=== PATIENT | male | born 1980 | race Caucasian/White ===

== ENCOUNTER 2021-06-03 23:10 | Emergency (ER) | payer OTHER, SELFPAY ==
[2021-06-03 23:29] VITALS: BP 175/99; PULSE 96; RESP 18; TEMP 36.5; O2SAT 99; BMI 22.9
--- NOTE | 2021-06-03 23:59 | HMH.EDGIBL ---
ED Disposition Clinical Impression: Upper gastrointestinal hemorrhage, Alcohol use Disposition: Left Against Medical Advice Condition on Discharge: Fair Instructions: DI for Gastrointestinal Bleeding Additional Instructions: recheck if any problems and stop etoh Referrals: Provider,Referral, [Primary Care Provider] - - Critical Care Critical Care Time: No Attestation: On , the high probability of a clinically significant, sudden or life threatening deterioration of the following system(s) required my full and direct attention, intervention and personal management. The time I documented below is in addition to time spent performing reported procedures but includes the following listed in this critical care notation. Medical Decision Making - Medical Records Medical records reviewed: Yes: I reviewed the patient's medical records. - [facility] Inquiry Pt receiving controlled substance: No Vital Signs: 06/03/21 23:29 06/04/21 01:56 Temperature 97.7 F 97.7 F Temperature Source Oral Oral Pulse Rate 87 Pulse Rate [Right Brachial] 96 H Respiratory Rate 18 18 Blood Pressure 110/75 Blood Pressure [Right Arm] 175/99 H Blood Pressure Mean [Right Arm] 124 02 Sat by Pulse Oximetry 99 - Lab Data Lab results reviewed: Yes: I reviewed the patient's lab results. Lab Results 06/03/21 23:45: WBC 14.2 H, RBC 5.40, Hgb 16.6, Hct 47.8, MCV 88.5, MCH 30.6, MCHC 34.6, RDW 14.1, Plt Count 442 H, MPV 7.7, Neut % (Auto) 86.6 H, Lymph % (Auto) 9.6 L, Callaway % (Auto) 2.7, Eos % (Auto) 0.9, Baso % (Auto) 0.2, Neut # (Auto) 12.3 H, Lymph # (Auto) 1.4, Callaway # (Auto) 0.4, Eos # (Auto) 0.1, Baso # (Auto) 0.0, Total Counted 100, Neutrophils % (Manual) 82 H, Lymphocytes % (Manual) 15, Monocytes % (Manual) 2, Eosinophils % (Manual) 1, Platelet Estimate Slight increase, Hypochromasia 1+ 06/03/21 23:45: Sodium 144, Potassium 4.0, Chloride 107, Carbon Dioxide 23, Anion Gap 18.0 H, BUN 7 L, Creatinine 0.60 L, Estimated Creat Clear 171, Estimated GFR 151, Est GFR ( Amer) 182, Glucose 98, Calcium 9.2, Total Bilirubin 0.8, AST 37, ALT 25, Alkaline Phosphatase 82, Total Protein 8.4 H, Albumin 5.1 H, Globulin 3.3 H, Albumin/Globulin Ratio 1.5, Amylase 153 H, Lipase 115 06/03/21 23:45: Plasma/Serum Alcohol 104 H 06/04/21 00:00: Lactate 2.3 H Result diagrams: 06/03/21 23:45 06/03/21 23:45 Orders (Tests/Meds): ED MEDICATIONS Generic Name Dose Route Start Last Admin Trade Name Freq PRN Reason Stop Dose Admin Pantoprazole Sodium 80 mg/ 100 mls @ 10 mls/hr 06/04/21 00:45 Sodium Chloride IV 06/06/21 00:44 .Q10H MARIA TERESA Sodium Chloride 1,000 mls @ 999 mls/hr 06/03/21 23:45 06/04/21 00:01 Sod Chlor 0.9% 1000ml Bag IV 06/04/21 00:45 999 mls/hr .Q1H1M MARIA TERESA Administration Discontinued Medications Generic Name Dose Route Start Last Admin Trade Name Freq PRN Reason Stop Dose Admin Famotidine 20 mg 06/03/21 23:47 06/03/21 23:47 Famotidine 20mg/2ml Vial IV 06/03/21 23:48 20 mg ONCE ONE Administration Hydromorphone HCl 1 mg 06/03/21 23:56 06/04/21 00:00 Hydromorphone 2mg/Ml Syringe IV 06/03/21 23:57 1 mg ONCE ONE Administration Pantoprazole Sodium 80 mg/ 100 mls @ 100 mls/hr 06/03/21 23:41 06/03/21 23:45 Sodium Chloride IV 06/04/21 00:40 100 mls/hr ONCE ONE Administration Iopamidol 75 ml 06/04/21 00:32 06/04/21 00:33 Iopamidol-370 (76%);100ml Bottle IV 06/04/21 00:33 75 ml ONCE ONE Administration Metoclopramide HCl 10 mg 06/03/21 23:43 06/03/21 23:46 Metoclopramide Hcl 10mg/2ml Vial IVP 06/03/21 23:44 10 mg ONCE ONE Administration Ondansetron HCl 4 mg 06/03/21 23:41 06/03/21 23:46 Ondansetron 4mg/2ml Vial IV 06/03/21 23:42 4 mg ONCE ONE Administration Promethazine HCl 25 mg 06/03/21 23:56 06/04/21 00:00 Promethazine Hcl 25mg/Ml 1ml Vial IV 06/03/21 23:57 25 mg ONCE ONE Administration Sodium Chloride 25 ml 06/03/21 23:56 Sodium Ch
--- NOTE | 2021-06-04 00:01 | CT_ITS ---
PROCEDURE INFORMATION: Exam: CT Abdomen And Pelvis With Contrast Exam date and time: 06/04/2021 12:01 AM Age: 40 years old Clinical indication: Abdominal tenderness and vomiting; Prior surgery; Surgery date: 6+ months; Surgery type: Hiatal hernia repair; Additional info: Vomiting, suspected gi bleed, epigastric pain TECHNIQUE: Imaging protocol: Computed tomography of the abdomen and pelvis with contrast. Radiation optimization: All CT scans at this facility use at least one of these dose optimization techniques: automated exposure control; mA and/or kV adjustment per patient size (includes targeted exams where dose is matched to clinical indication); or iterative reconstruction. Contrast material: ISOVUE; Contrast volume: 75 ml; Contrast route: IV; COMPARISON: No relevant prior studies available. FINDINGS: Liver: Normal. No mass. Gallbladder and bile ducts: Normal. No calcified stones. No ductal dilation. Pancreas: Normal. No ductal dilation. Spleen: Multiple calcified granuloma in the spleen. Adrenal glands: Normal. No mass. Kidneys and ureters: Normal. No hydronephrosis. Stomach and bowel: Postsurgical changes seen of the GE junction. Appendix: No evidence of appendicitis. Intraperitoneal space: Unremarkable. No free air. No significant fluid collection. Vasculature: Unremarkable. No abdominal aortic aneurysm. Lymph nodes: Unremarkable. No enlarged lymph nodes. Urinary bladder: Unremarkable as visualized. Reproductive: Unremarkable as visualized. Bones/joints: Chronic appearing disc bulge at L2 L3 causes some impingement of the central canal at this level. Soft tissues: Unremarkable. IMPRESSION: No acute intra-abdominal pathology.
[2021-06-04 00:02] LABS: Basophils % 0.2 % (0.1-2.0); Eosinophils # 0.1 K/mm3 (0.0-0.4); Eosinophils % 0.9 % (0.1-12.0); Hematocrit 47.8 % (42.0-52.0); Hemoglobin 16.6 g/dL (14.1-18.0); Lymphocytes # 1.4 K/mm3 (0.7-4.5); Lymphocytes % 9.6 % (10-50); Mean Corpuscular HGB Conc 34.6 g/dL (31.8-35.4); Mean Corpuscular Hemoglobin 30.6 pg (27.0-31.2); Mean Corpuscular Volume 88.5 fl (80-94); Mean Platelet Volume 7.7 fl (7.4-10.4); Monocytes # 0.4 K/mm3 (0.1-1.0); Monocytes % 2.7 % (1.7-9.3); Neutrophils # 12.3 K/mm3 (1.8-7.8); Neutrophils % 86.6 % (37.0-80.0); Platelet Count 442 K/mm3 (142-424); Red Cell Distribution Width 14.1 % (11.5-17.5); White Blood Count 14.2 K/mm3 (4.8-10.8)
--- NOTE | 2021-06-04 00:02 | XR_ITS ---
PROCEDURE INFORMATION: Exam: XR Chest Exam date and time: 06/04/2021 12:02 AM Age: 40 years old Clinical indication: Other: Vomiting, epigastric pain, ; additional info: Abd pain vomiting TECHNIQUE: Imaging protocol: XR of the chest. Views: 2 views. COMPARISON: CT ABDOMEN PELVIS W CON 06/04/2021 12:15 AM FINDINGS: Lungs: Unremarkable. No consolidation. Pleural spaces: Unremarkable. No pleural effusion. No pneumothorax. Heart/Mediastinum: Unremarkable. No cardiomegaly. Bones/joints: Unremarkable. IMPRESSION: No acute findings.
[2021-06-04 00:04] LABS: MANUAL DIFFERENTIAL MANUAL DIFFERENTIAL (MANUAL DIFF)
[2021-06-04 00:24] LABS: Chloride 107 mmol/L (98-107)
[2021-06-04 00:25] LABS: Sodium 144 mmol/L (136-145)
[2021-06-04 00:27] LABS: Alanine Aminotransferase 25 U/L (12-78); Alkaline Phosphatase 82 U/L (38-126); Amylase 153 U/L (30-110); Aspartate Amino Transferase 37 U/L (17-59); Bilirubin,Total 0.8 mg/dl (0.2-1.3); Blood Urea Nitrogen 7 mg/dl (9-20); Carbon Dioxide 23 mmol/L (22.0-30.0); Creatinine Clearance Estimated 171 mL/min (50-200); Estimated Glomerular Filt Rate 151 ml/min (>60); GFR (African American) 182 ML/MIN (>60)
[2021-06-04 00:28] LABS: Albumin Level 5.1 g/dl (3.5-5.0); Albumin/Globulin Ratio 1.5 (1.1-1.8); Calcium 9.2 mg/dl (8.4-10.2); Globulin 3.3 g/dL (1.3-3.2); Glucose 98 mg/dl (74-100); Lipase 115 U/L (23-300); Total Protein,Serum 8.4 g/dl (6.3-8.2)
[2021-06-04 00:29] LABS: Lactic Acid 2.3 mmol/L (0.7-2.1)
[2021-06-04 00:29] LABS: Ethyl Alcohol 104 mg/dl (0-10)
--- NOTE | 2021-06-04 01:55 | PC.NURSE ---
pt and pt's chose to leave AMA @ this time
[2021-06-04 01:56] VITALS: BP 110/75; PULSE 87; RESP 18; TEMP 36.5; O2SAT 99
[2021-06-04 02:30] LABS: Eosinophils % 1 % (0-3); Hypochromasia 1+; Lymphocytes % 15 % (10-50); Monocytes % 2 % (2-9); Neutrophils % 82 % (42-76); Platelet Estimate Slight Increase; Total Cells Counted 100
[2021-06-04 04:06] LABS: C-Reactive Protein 10.2 mg/L (0-4)
[2021-06-04 04:37] LABS: Procalcitonin < 0.030 ng/mL (0.0-2.0)
[2021-06-04 05:08] LABS: Erythrocyte Sedimentation Rate 7 mm/hr (0-15)
== END 2021-06-04 01:58 | disposition left against medical advice (07) ==
PROVIDERS: Emergency Provider Emergency Medicine
DX: K92.2 Gastrointestinal hemorrhage, unspecified (principal); F10.10 Alcohol abuse, uncomplicated
CPT/HCPCS: 71046; 74177; 80053; 82150; 83605; 83690; 84145; 85007; 85025; 85651; 86140; 87040; 96365; 99283; J2405; Q9967

== ENCOUNTER 2023-07-29 10:49 | Emergency (ER) | payer OTHER, SELFPAY ==
[2023-07-29] VITALS (10 sets, daily range): BP systolic 109–208; BP diastolic 60–119; PULSE 54–75; RESP 16–17; TEMP 36.6–37.1; O2SAT 92–98; BMI 17.2; BMI 21.5
[2023-07-29 11:33] LABS: Lactic Acid 1.4 mmol/L (0.7-2.1)
[2023-07-29 11:36] LABS: Basophils % 0.3 % (0.1-2.0); Eosinophils # 0.2 K/mm3 (0.0-0.4); Eosinophils % 1.6 % (0.1-12.0); Hematocrit 50.6 % (42.0-52.0); Hemoglobin 15.8 g/dL (14.1-18.0); Lymphocytes # 1.1 K/mm3 (0.7-4.5); Lymphocytes % 7.8 % (10-50); Mean Corpuscular HGB Conc 31.1 g/dL (31.8-35.4); Mean Corpuscular Hemoglobin 27.9 pg (27.0-31.2); Mean Corpuscular Volume 89.6 fl (80-94); Monocytes # 0.5 K/mm3 (0.1-1.0); Monocytes % 3.4 % (1.7-9.3); Neutrophils # 12.4 K/mm3 (1.8-7.8); Neutrophils % 86.9 % (37.0-80.0); Platelet Count 517 K/mm3 (142-424); Red Blood Count 5.65 M/mm3 (4.60-6.20); Red Cell Distribution Width 13.6 % (11.5-17.5); White Blood Count 14.3 K/mm3 (4.8-10.8)
[2023-07-29 11:37] LABS: MANUAL DIFFERENTIAL MANUAL DIFFERENTIAL (MANUAL DIFF)
[2023-07-29 11:38] LABS: Chloride 101 mmol/L (98-107); Potassium 4.5 mmoL/L (3.5-5.1); Sodium 139 mmol/L (136-145)
[2023-07-29 11:41] LABS: Alanine Aminotransferase 37 U/L (12-78); Albumin Level 4.8 g/dl (3.5-5.0); Albumin/Globulin Ratio 1.1 (1.1-1.8); Alkaline Phosphatase 101 U/L (38-126); Anion Gap 18.5 mEq/L (5-15); Aspartate Amino Transferase 43 U/L (17-59); Bilirubin,Total 0.8 mg/dl (0.2-1.3); Blood Urea Nitrogen 23 mg/dl (9-20); Calcium 10.2 mg/dl (8.4-10.2); Carbon Dioxide 24 mmol/L (22.0-30.0); Creatinine Clearance Estimated 118 mL/min (50-200); Estimated Glomerular Filt Rate 107 ml/min (>60); GFR (African American) 130 ML/MIN (>60); Globulin 4.2 g/dL (1.3-3.2); Glucose 122 mg/dl (74-100); Lipase 126 U/L (23-300)
[2023-07-29 11:42] LABS: Triglycerides 107 mg/dl (30-150)
[2023-07-29 11:45] LABS: Lymphocytes % 5 % (10-50); Monocytes % 7 % (2-9); Neutrophils % 88 % (42-76); Total Cells Counted 100
[2023-07-29 11:46] LABS: Platelet Estimate Moderate Increase; RBC Morphology Normal
--- NOTE | 2023-07-29 11:48 | HMH.EDGENADL ---
Discharge Plan Disposition Patient Disposition: Home, Self-Care Prescriptions Prescriptions: New famotidine [Pepcid] 20 mg tablet 20 mg PO BID 42 Days Qty: 84 0RF No Action methylphenidate HCl 10 MG tablet 10 mg PO DAILY Referrals Follow up/Referrals: Provider,Referral, MD [Primary Care Provider] - See instructions Activity Restrictions/Add. Instructions Additional Instructions/Restrictions: Call your family doctor to establish care for this visit to the emergency department and schedule follow-up within 48 hours to ensure improvement. If you have any worsening of your condition or any other concerning signs or symptoms, return to the emergency department or your primary care doctor for further evaluation. Take 20 mg Pepcid twice daily for 6 weeks. Follow-up with your family doctor, call family medicine or internal medicine at the [facility]. You can also call family medicine here at [facility]. Clinical Impressions Clinical Impression: Gastritis, Chronic pancreatitis Instructions Patient Instructions: DI for Acute Abdominal Pain Discharge ED Provider: Ed Erickson General Adult HPI General Chief complaint: Chest Pain Stated complaint: Vomiting, abd pain, lower back pain Time Seen by Provider: 07/29/23 11:02 Mode of Arrival: Ambulatory Source of Information: Patient Limitations: No Limitations Description of Symptoms (Recalled from ER Triage Doc. by RN): Pt arrives via ems c c/o left sided chest pain that radiates into his left arm and upper back. States that the pain began last night. Denies n/v of soa. Does report hx of cabgx5 in April. History of Present Illness HPI narrative: 42-year-old male previous history of alcoholic induced pancreatitis presenting with abdominal pain. Patient states he was driving yesterday on 07/28 when he had acute onset abdominal pain. Epigastric, radiates to left flank. Associated with nausea and vomiting was nonbloody, nonbilious. Went away yesterday, returned today, /8. 7-8 out of 10 currently. Still having bowel movements and passing gas. Denies fevers, chills, abdominal distention or bloating, or any other concerns. Related Data Home Medications Medication Instructions Recorded Confirmed methylphenidate HCl 10 mg tablet 10 mg PO DAILY behavior 06/03/21 06/03/21 Previous Rx's Medication Instructions Recorded famotidine 20 mg tablet (Pepcid) 20 mg PO BID 6 weeks #84 tabs 07/29/23 Allergies Allergy/AdvReac Type Severity Reaction Status Date / Time No Known Allergies Allergy Verified 06/03/21 23:35 [facility] Disclaimer: The information contained in this section may have been updated after the patient was seen, as this information can be updated by other users. Social History Smoking Status: Never smoker alcohol intake: former current occupational status: other Travel in the last 8 weeks: None ROS Obtained: Yes All systems reviewed & no additional complaints except as documented Physical Exam General General appearance: alert, in no apparent distress and other ( ) Head Head exam: atraumatic and normocephalic Eye Eye exam: Present normal appearance, PERRL and EOMI ENT ENT exam: Present mucous membranes moist Neck Neck exam: Present normal inspection, full ROM and trachea midline Respiratory Respiratory exam: Absent respiratory distress, wheezes, stridor, accessory muscle use or prolonged expiratory phase Cardiovascular Cardiovascular exam: Present regular rate and normal rhythm Abdominal Exam Abdominal exam: Present soft and tenderness; Absent distention, guarding, rebound, rigidity or normal bowel sounds Abdominal tenderness: Present epigastrium Extremities Exam Extremities exam: Absent edema Back Exam Back exam: Present CVA tenderness (R); Absent CVA tenderness (L) Neurological Exam Neurological exam: Present alert, oriented X3, CN II-XII intact and normal gait; Absent motor sensory deficit Skin Skin exam: Prese
--- NOTE | 2023-07-29 12:43 | CT_ITS ---
FINAL REPORT CLINICAL HISTORY: epigastric pain, h/o pancreatitis COMPARISON: 06/04/2021 FINDINGS: CT OF THE ABDOMEN AND PELVIS WITH CONTRAST Axial CT images of the abdomen and pelvis were obtained after the administration of IV contrast. Coronal and sagittal reformatted images were also obtained and reviewed. This study was performed with techniques to keep radiation doses as low as reasonably achievable (ALARA). Individualized dose reduction techniques using automated exposure control or adjustment of mA and/or kV according to the patient's size were employed. Abdomen: The lung bases are clear. The heart is normal in size. The liver has an unremarkable appearance, without evidence of mass or biliary ductal dilatation. The spleen is unremarkable. No adrenal mass is present. The pancreas has an unremarkable appearance. The kidneys are normal, without evidence of mass or hydronephrosis. The aorta is normal in caliber. There is no free fluid or adenopathy. No mass or abnormal fluid collection is seen. Pelvis: The appendix is normal. The urinary bladder is unremarkable. No inflammatory process is seen. There is no evidence of mass or adenopathy. There is no evidence of bowel obstruction. IMPRESSION: No evidence of acute intra-abdominal process. Reviewed, Interpreted and Dictated by Riki Sullivan III, MD Transcribed by Sofi Bragg Authenticated and [facility]
--- NOTE | 2023-07-29 12:44 | PC.NURSE ---
Rounded on pt. Updated on POC. No needs at this time.
--- NOTE | 2023-07-29 13:06 | PC.NURSE ---
graduate assistant athletic trainer at bedside to take for ct scan
--- NOTE | 2023-07-29 14:31 | PC.NURSE ---
Dr. Erickson at to speak with pt/visitor
== END 2023-07-29 16:13 | disposition home or self-care (01) ==
PROVIDERS: Emergency Medicine; Emergency Provider Emergency Medicine
DX: R07.89 Other chest pain (principal); K86.1 Other chronic pancreatitis; K29.70 Gastritis, unspecified, without bleeding; M79.602 Pain in left arm
CPT/HCPCS: 74177; 80053; 83605; 83690; 84478; 85007; 85025; 96361; 96374; 96375; 99285; Q9967

== ENCOUNTER 2023-08-29 22:31 | Emergency (ER) | payer OTHER, SELFPAY ==
[2023-08-29 22:42] VITALS: BP 147/94; PULSE 110; RESP 22; TEMP 36.8; O2SAT 95; BMI 41.1
[2023-08-29 22:56] LABS: Basophils % 0.1 % (0.1-2.0); Eosinophils # 0.1 K/mm3 (0.0-0.4); Eosinophils % 0.8 % (0.1-12.0); Hematocrit 51.5 % (42.0-52.0); Hemoglobin 16.5 g/dL (14.1-18.0); Lymphocytes # 1.3 K/mm3 (0.7-4.5); Lymphocytes % 6.9 % (10-50); Mean Corpuscular Hemoglobin 28.3 pg (27.0-31.2); Mean Corpuscular Volume 88.2 fl (80-94); Mean Platelet Volume 7.4 fl (7.4-10.4); Monocytes # 0.4 K/mm3 (0.1-1.0); Monocytes % 2.1 % (1.7-9.3); Neutrophils # 16.2 K/mm3 (1.8-7.8); Neutrophils % 90.1 % (37.0-80.0); Platelet Count 516 K/mm3 (142-424); Red Blood Count 5.83 M/mm3 (4.60-6.20); Red Cell Distribution Width 13.5 % (11.5-17.5)
[2023-08-29 22:58] LABS: Chloride 105 mmol/L (98-107); MANUAL DIFFERENTIAL MANUAL DIFFERENTIAL (MANUAL DIFF); Potassium 4.2 mmoL/L (3.5-5.1); Sodium 142 mmol/L (136-145)
[2023-08-29 23:00] VITALS: BP 145/86; PULSE 71; O2SAT 93
[2023-08-29 23:01] LABS: Alanine Aminotransferase 33 U/L (12-78); Alkaline Phosphatase 100 U/L (38-126); Anion Gap 19.2 mEq/L (5-15); Aspartate Amino Transferase 37 U/L (17-59); Bilirubin,Total 1.3 mg/dl (0.2-1.3); Blood Urea Nitrogen 14 mg/dl (9-20); Carbon Dioxide 22 mmol/L (22.0-30.0); Creatinine Clearance Estimated 92 mL/min (50-200); Estimated Glomerular Filt Rate 74 ml/min (>60); GFR (African American) 90 ML/MIN (>60); Globulin 5.1 g/dL (1.3-3.2); Glucose 136 mg/dl (74-100); Lipase 339 U/L (23-300); Total Protein,Serum 10.1 g/dl (6.3-8.2)
[2023-08-29 23:05] LABS: Activated Partial Thrombo Time 26.1 seconds (22.8-30.6); INR 1.03 (0.9-1.1); Prothrombin Time 11.1 seconds (10.1-12.5)
[2023-08-29 23:18] LABS: Lymphocytes % 10 % (10-50); Monocytes % 1 % (2-9); Neutrophils % 89 % (42-76); Platelet Estimate Normal; RBC Morphology Normal; Total Cells Counted 100
--- NOTE | 2023-08-29 23:21 | HMH.EDGENADL ---
Discharge Plan Disposition Patient Disposition: [facility] Chief Complaint: Abdominal Pain Prescriptions Prescriptions: No Action famotidine [Pepcid] 20 mg tablet 20 mg PO BID 42 Days Qty: 84 0RF methylphenidate HCl 10 MG tablet 10 mg PO DAILY Referrals Follow up/Referrals: Provider,Referral, [Primary Care Provider] - See instructions Clinical Impressions Clinical Impression: Acute dehydration, Chronic alcoholic pancreatitis Acute pancreatitis Qualifiers: Pancreatitis type: unspecified pancreatitis type Acute pancreatitis complication: unspecified Qualified Code(s): K85.90 - Acute pancreatitis without necrosis or infection, unspecified Instructions Patient Instructions: DI for Acute Abdominal Pain Discharge ED Provider: Lewis Gamino General Adult HPI General Chief complaint: Abdominal Pain Stated complaint: Lower stomach Time Seen by Provider: 08/29/23 22:57 Mode of Arrival: Wheelchair Source of Information: Patient Limitations: No Limitations Description of Symptoms (Recalled from ER Triage Doc. by RN): Patient has had N/V and ABD pain consistant with his chronic pancratitis. History of Present Illness HPI narrative: 42-year-old male, history of alcoholic pancreatitis, sober for the last 1 year presents with recurrent pancreatitis. He reports that he has had at least 3 episodes in the last month, this is abnormal for him. Today he started feeling ill, then developed fairly significant epigastric and left upper quadrant pain with significant nonbloody/nonbilious vomiting and inability to tolerate oral intake. No reported fever at home. He reports this pain feels consistent with prior pancreatitis. Patient was seen here a month ago for similar symptoms, had a negative CT scan and was discharged with symptom control. [facility]. He denies any significant chest pain, reports normal bowel movements. Related Data Home Medications Medication Instructions Recorded Confirmed methylphenidate HCl 10 mg tablet 10 mg PO DAILY behavior 06/03/21 08/29/23 Previous Rx's Medication Instructions Recorded famotidine 20 mg tablet (Pepcid) 20 mg PO BID 6 weeks #84 tabs 07/29/23 Allergies Allergy/AdvReac Type Severity Reaction Status Date / Time No Known Allergies Allergy Verified 06/03/21 23:35 [facility] Disclaimer: The information contained in this section may have been updated after the patient was seen, as this information can be updated by other users. Social History (Updated 07/29/23 @ 15:50 by Ed Erickson MD) Smoking Status: Current every day smoker alcohol intake: former current occupational status: other Travel in the last 8 weeks: None ROS Obtained: Yes All systems reviewed & no additional complaints except as documented Physical Exam General General appearance: alert and in distress Head Head exam: atraumatic, normocephalic and other (Mild temporal wasting) Eye Eye exam: Present normal appearance, PERRL and EOMI ENT ENT exam: Present mucous membranes dry and normal external ear exam Neck Neck exam: Present normal inspection Chest Chest inspection: Present normal inspection and symmetric chest wall rise; Absent tenderness Respiratory Respiratory exam: Present normal lung sounds bilaterally; Absent respiratory distress Cardiovascular Cardiovascular exam: Present regular rate and normal rhythm Abdominal Exam Abdominal exam: Present soft and tenderness (Moderate to severe, epigastric, left upper quadrant. No tenderness in the right upper quadrant); Absent distention or guarding Extremities Exam Extremities exam: Present other (Thin appearing); Absent edema or joint swelling Back Exam Back exam: Present normal inspection; Absent tenderness Neurological Exam Neurological exam: Present alert and oriented X3; Absent motor sensory deficit Psychiatric Psychiatric exam: Present normal affect and normal mood Skin Skin exam: Present warm, d
[2023-08-29 23:30] VITALS: BP 123/62; PULSE 62; O2SAT 96
[2023-08-30] VITALS: BP 133/63; PULSE 56; O2SAT 99
--- NOTE | 2023-08-30 00:23 | PC.NURSE ---
Spoke to Evan at [place] transfer center re: transfer to their facility. they have requested COVID, ETOH & drug screen prior to speaking to doctor for admission. Samples collected and sent to lab
[2023-08-30 00:24] LABS: Coronavirus 19, PCR Not Detected (NotDetected); Influenza A, PCR Not Detected (NotDetected); Influenza B, PCR Not Detected (NotDetected)
[2023-08-30 00:30] VITALS: BP 146/66; PULSE 88; RESP 18; O2SAT 99
[2023-08-30 00:45] LABS: Ethyl Alcohol < 10 mg/dl (0-10)
[2023-08-30 01:00] VITALS: BP 124/73; PULSE 56; O2SAT 98
--- NOTE | 2023-08-30 01:02 | PC.NURSE ---
Dr. Pedroza from [facility] on phone with ED doctor
--- NOTE | 2023-08-30 01:05 | PC.NURSE ---
Dr. Pedroza accepted pt
--- NOTE | 2023-08-30 01:57 | PC.NURSE ---
Report called to YOU Sanchez at [place]
[2023-08-30 02:16] VITALS: BP 124/73; PULSE 58; RESP 18; TEMP 36.9; O2SAT 98
== END 2023-08-30 02:16 ==
PROVIDERS: Emergency Medicine; Emergency Provider Emergency Medicine
DX: K85.90 Acute pancreatitis without necrosis or infection, unspecified (principal); K86.0 Alcohol-induced chronic pancreatitis; E86.0 Dehydration; R10.84 Generalized abdominal pain; R11.2 Nausea with vomiting, unspecified; F17.210 Nicotine dependence, cigarettes, uncomplicated; F10.11 Alcohol abuse, in remission
CPT/HCPCS: 80053; 80320; 83690; 85007; 85025; 85027; 85610; 85730; 87636; 96361; 96372; 96374; 96375; 99285; G0480; J2405